=== PATIENT | male | born 1930 | race Caucasian/White ===

== ENCOUNTER 2017-09-13 09:03 | Day surgery (SDC) | payer OTHER ==
[~2017-09-13] VITALS: Ht 182.9 cm; Wt 106.0 kg
[2017-09-13 09:27] VITALS: BP 113/58; PULSE 82; TEMP 36.3; O2SAT 93; Ht 182.9 cm; Wt 106.0 kg
[2017-09-13] MEDS ORDERED: CHOL1TAB42 PO (10:15)
[2017-09-13] MEDS ORDERED: METO50TA16 PO (10:15)
[2017-09-13] MEDS ORDERED: ALLO100T PO (10:15)
[2017-09-13] MEDS ORDERED: FRS/40 PO (10:15)
[2017-09-13] MEDS ORDERED: POLY335019 PO (10:15)
[2017-09-13] MEDS ORDERED: CALC500C70 PO (10:15)
[2017-09-13] MEDS ORDERED: NVLRB SC ×2 (10:15)
[2017-09-13] MEDS ORDERED: IPRA-64 INH (10:15)
[2017-09-13] MEDS ORDERED: METH-1117 PO (10:15)
[2017-09-13] MEDS ORDERED: ACET-1693 PO ×2 (10:15)
[2017-09-13] MEDS ORDERED: TRAM-10 PO (10:15)
[2017-09-13] MEDS ORDERED: WARF-283 PO (10:15)
[2017-09-13] MEDS ORDERED: SIMV40TA4 PO (10:15)
[2017-09-13] MEDS ORDERED: DORZ1SOL6 OPR (10:15)
[2017-09-13] MEDS ORDERED: GABA-112 PO (10:15)
[2017-09-13] MEDS ORDERED: CEFE2INJ2 IV (10:15)
[2017-09-13] MEDS ORDERED: INSUINJ7 SC (10:15)
[2017-09-13] MEDS ORDERED: INSDGI SC (10:15)
[2017-09-13] MEDS ORDERED: LISI-461 PO (10:15)
[2017-09-13] MEDS ORDERED: DULO-24 PO (10:15)
[2017-09-13] MEDS ORDERED: vancomycin IV (10:15)
--- NOTE | 2017-09-13 11:29 | DIAGNOSTIC IMAGING REPORT ---
CHEST ONE VIEW PORTABLE HISTORY: picc placement COMPARISON: None. FINDINGS: The left PICC is looped in the left brachiocephalic vein. This should be repositioned. No pneumothorax. The right lung is clear. The heart is mildly enlarged. There is blunting of the left lateral costophrenic sulcus and left basilar densities. IMPRESSION: 1. The left PICC is looped in the left brachiocephalic vein. This should be repositioned. 2. Blunting of the left lateral costophrenic sulcus and left basilar densities. This could represent an effusion, scarring, or pneumonia. Electronically signed by: Jayce Griffin M.D. 09/13/2017 11:28 AM Dictated Date/Time: 09/13/2017 11:27 AM
--- NOTE | 2017-09-13 12:27 | DIAGNOSTIC IMAGING REPORT ---
CHEST ONE VIEW PORTABLE CLINICAL HISTORY: picc placement line position COMPARISON STUDY: 09/13/2017 FINDINGS: Interval removal of left-sided PICC catheter. No evidence of pneumothorax. Mild stable cardiomegaly. Diaphragms smooth. Chronic scarring left lateral calcific angle. IMPRESSION: Chronic change. No acute process. The catheter has been removed. The above report was generated using voice recognition software. It may contain grammatical, syntax or spelling errors. Electronically signed by: Luiz Baig M.D. 09/13/2017 12:26 PM Dictated Date/Time: 09/13/2017 12:24 PM
--- NOTE | 2017-09-22 11:18 | EDITING REQUIRED CODING QUERY ---
TREATMENT RENDERED WITHOUT A DIAGNOSIS To promote full compliance with coding requirements relating to patient care, physician participation is requested in all cases of conveyancer uncertainty. Please assist us with the question(s) below: Coding Question: The patient is receiving PICC LINE,PLACMENT, as noted in the ORDER HISTORY of the record. Please document the diagnosis that is being addressed by the medication/treatment. Provider Response: Sacral decubitus ulcer. Thank you Adelaida Harrison
== END 2017-09-13 14:47 | disposition home or self-care (01) ==
LOC: C.MTU 09:03
PROVIDERS: ATTEND Hospitalist
DX: L89.159 Pressure ulcer of sacral region, unspecified stage (principal)